=== PATIENT | female | born 1995 | race Caucasian/White ===

== ENCOUNTER 2018-02-15 20:20 | Inpatient (IN) | payer OTHER ==
[~2018-02-15] VITALS: Ht 165.1 cm; Wt 65.7 kg
[~2018-02-15 20:20] MED LIST: LANTUS100 U/ML SQ; NOVOLOG 100U100 U/M1
[2018-02-15 21:12] LABS: COLLECTION METHOD CLEAN CATCH
[2018-02-15 21:20] LABS: BASO # 0.2 (0.0-0.2); BASO % 0.6 % (0.0-2.0); GRAN # 21.6 (1.4-6.5); GRAN % 82.1 % (42.2-75.2); HEMATOCRIT 48.2 % (37.0-47.0); HEMOGLOBIN 15.9 g/dl (12.5-16.0); LYMPH # 2.2 (1.2-3.4); LYMPH % 8.5 % (20.0-51.0); MEAN CELL VOLUME 93 fl (80.0-100.0); MEAN CORPUSCULAR HEMOGLOBIN 31 pg (27.0-31.0); MEAN CORPUSCULAR HGB CONC 33 g/dl (33.0-37.0); MEAN PLATELET VOLUME 9.3 fl (7.4-10.4); MONO # 1.6 (0.1-0.6); MONO % 6.1 % (1.7-9.3); PLATELET COUNT 441 K/mm3 (130-400); RED BLOOD COUNT 5.17 M/mm3 (4.10-5.30); REDCELL DISTRIBUTION WIDTH-CV 11.8 % (11.5-14.5)
[2018-02-15 21:24] LABS: MUCOUS Present /lpf; PH 5 (5-8); SQUAMOUS EPITHELIAL 0-2 /hpf; URINE APPEARANCE Clear; URINE BACTERIA Rare /hpf; URINE BILIRUBIN Negative (NEGATIVE); URINE BLOOD 1+ (NEGATIVE); URINE COLOR Straw; URINE GLUCOSE 3+ (NEGATIVE); URINE KETONE 2+ (NEGATIVE); URINE LEUKOCYTE ESTERASE Negative (NEGATIVE); URINE NITRATE Negative (NEGATIVE); URINE PROTEIN(semi-quant) 2+ (NEGATIVE); URINE RBC 0-2 /hpf; URINE UROBILINOGEN Negative (NEGATIVE)
[2018-02-15 21:25] LABS: ALBUMIN 5.1 gm/dL (3.5-5.0); BILIRUBIN,TOTAL 0.5 mg/dL (0.0-1.0); CALCIUM 9.3 mg/dL (8.4-10.2); CREATININE, serum 0.81 mg/dL (0.52-1.25); TOTAL PROTEIN 8.4 gm/dL (6.4-8.2)
[2018-02-15 21:28] LABS: POTASSIUM 6.1 mmol/L (3.4-5.0)
[2018-02-15 21:29] LABS: ALCOHOL(ethanol),MEDICAL < 10 mg/dL; LIPASE 59 U/L (23-300)
[2018-02-15 21:33] LABS: TRICYCLIC ANTIDEPRESS URINE NEGATIVE
[2018-02-15 21:48] LABS: ACETONE,SERUM SMALL
[2018-02-15 23:59] VITALS: O2SAT 100
[2018-02-16] VITALS (760 sets, daily range): BP systolic 100–122; BP diastolic 52–67; PULSE 85–123; TEMP 98.5–100.6; O2SAT 96–100
[2018-02-16] MEDS ORDERED: NEXPLANON68 MG ID (00:32)
[2018-02-16 01:44] LABS: BLOOD UREA NITROGEN 10 mg/dL (7-17); CALCIUM 9.1 mg/dL (8.4-10.2); CHLORIDE 116 mmol/L (98-107); CREATININE, serum 0.63 mg/dL (0.52-1.25); GLUCOSE 185 mg/dL (74-106); POTASSIUM 4.7 mmol/L (3.4-5.0); SODIUM 138 mmol/L (137-145)
[2018-02-16 01:47] LABS: CARBON DIOXIDE < 5 mmol/L (22-30)
[2018-02-16 05:28] LABS: BASO # 0.1 (0.0-0.2); BASO % 0.3 % (0.0-2.0); EOS % 0.1 % (0-4.0); GRAN # 12.3 (1.4-6.5); GRAN % 70.6 % (42.2-75.2); LYMPH # 2.6 (1.2-3.4); LYMPH % 15.2 % (20.0-51.0); MEAN CELL VOLUME 89 fl (80.0-100.0); MEAN CORPUSCULAR HEMOGLOBIN 30 pg (27.0-31.0); MEAN CORPUSCULAR HGB CONC 34 g/dl (33.0-37.0); MEAN PLATELET VOLUME 9.1 fl (7.4-10.4); MONO # 2.1 (0.1-0.6); MONO % 12.3 % (1.7-9.3); PLATELET COUNT 356 K/mm3 (130-400); RED BLOOD COUNT 4.16 M/mm3 (4.10-5.30); REDCELL DISTRIBUTION WIDTH-CV 11.9 % (11.5-14.5)
[2018-02-16 05:36] LABS: HEMOGLOBIN 12.6 g/dl (12.5-16.0)
[2018-02-16 05:39] LABS: CALCIUM 8.6 mg/dL (8.4-10.2); CREATININE, serum 0.61 mg/dL (0.52-1.25); POTASSIUM 3.9 mmol/L (3.4-5.0)
[2018-02-16 06:54] LABS: BAND 12 % (0-10); LYMPHOCYTE 22 % (20.0-51.0); NEUTROPHILS 58 % (42.0-75.2); PLATELET ESTIMATE NORMAL (NORMAL)
[2018-02-16 13:22] LABS: CALCIUM 8.1 mg/dL (8.4-10.2); CREATININE, serum 0.64 mg/dL (0.52-1.25); POTASSIUM 4.2 mmol/L (3.4-5.0)
[2018-02-16 15:26] LABS: CALCIUM 7.9 mg/dL (8.4-10.2); CREATININE, serum 0.62 mg/dL (0.52-1.25); POTASSIUM 3.9 mmol/L (3.4-5.0)
[2018-02-16 17:29] LABS: CALCIUM 8.1 mg/dL (8.4-10.2); CREATININE, serum 0.67 mg/dL (0.52-1.25); POTASSIUM 3.5 mmol/L (3.4-5.0)
[2018-02-16 19:21] LABS: CALCIUM 8.2 mg/dL (8.4-10.2); CREATININE, serum 0.64 mg/dL (0.52-1.25); POTASSIUM 3.5 mmol/L (3.4-5.0)
[2018-02-16 21:20] LABS: CALCIUM 7.8 mg/dL (8.4-10.2); CREATININE, serum 0.6 mg/dL (0.52-1.25); POTASSIUM 3.7 mmol/L (3.4-5.0)
[2018-02-16 23:28] LABS: CALCIUM 7.8 mg/dL (8.4-10.2); CREATININE, serum 0.57 mg/dL (0.52-1.25); POTASSIUM 4.5 mmol/L (3.4-5.0)
[2018-02-17] VITALS (310 sets, daily range): BP systolic 94–104; BP diastolic 60–75; PULSE 64–100; TEMP 98.9–99.2; O2SAT 96–100
[2018-02-17 01:40] LABS: CALCIUM 7.9 mg/dL (8.4-10.2); CREATININE, serum 0.52 mg/dL (0.52-1.25); POTASSIUM 3.8 mmol/L (3.4-5.0)
[2018-02-17 03:39] LABS: CREATININE, serum 0.58 mg/dL (0.52-1.25); POTASSIUM 3.7 mmol/L (3.4-5.0)
[2018-02-17 06:07] LABS: BASO # 0.1 (0.0-0.2); BASO % 1.1 % (0.0-2.0); EOS # 0.1 (0.0-0.7); GRAN # 3.3 (1.4-6.5); GRAN % 45.4 % (42.2-75.2); HEMOGLOBIN 12.3 g/dl (12.5-16.0); LYMPH % 41.3 % (20.0-51.0); MEAN CELL VOLUME 89 fl (80.0-100.0); MEAN CORPUSCULAR HEMOGLOBIN 30 pg (27.0-31.0); MEAN CORPUSCULAR HGB CONC 34 g/dl (33.0-37.0); MONO # 0.8 (0.1-0.6); MONO % 10.6 % (1.7-9.3); PLATELET COUNT 264 K/mm3 (130-400); RED BLOOD COUNT 4.12 M/mm3 (4.10-5.30); REDCELL DISTRIBUTION WIDTH-CV 12.4 % (11.5-14.5)
[2018-02-17 06:11] LABS: HEMATOCRIT 36.7 % (37.0-47.0)
[2018-02-17 06:24] LABS: CALCIUM 8.2 mg/dL (8.4-10.2); CREATININE, serum 0.55 mg/dL (0.52-1.25); MAGNESIUM 1.7 mg/dL (1.6-2.3); POTASSIUM 3.7 mmol/L (3.4-5.0)
[2018-02-17 07:38] LABS: CALCIUM 8.1 mg/dL (8.4-10.2); CREATININE, serum 0.54 mg/dL (0.52-1.25); POTASSIUM 3.7 mmol/L (3.4-5.0)
[2018-02-17] MEDS ORDERED: LANTUS100 U/ML SQ ×2 (10:53)
== END 2018-02-17 11:55 | disposition home or self-care (01) | DRG 639 ==
LOC: COL.ER 20:20 → ICU 21:16
PROVIDERS: Emergency Medicine; Internal Medicine; Nurse Practitioner
DX: E10.10 Type 1 diabetes mellitus with ketoacidosis without coma (principal); Z79.4 Long term (current) use of insulin; T51.0X1A Toxic effect of ethanol, accidental (unintentional), initial encounter; E87.5 Hyperkalemia
CPT/HCPCS: 99223-AI; 99239; J1815; J2405; J3480; J7030